=== PATIENT | female | born 1965 ===

== ENCOUNTER → 2018-10-29 | Outpatient (CLI) | payer SELFPAY ==
--- NOTE | 2018-10-29 09:30 | RAD ---
EXAM DESCRIPTION: Hand,Right 3 Views CLINICAL HISTORY: PAIN IN RIGHT HAND COMPARISON: None Available. TECHNIQUE: AP, LATERAL, AND OBLIQUE FINDINGS: Three views of the right hand demonstrate normal alignment and mineralization. No fracture or dislocation is noted. No destructive change or advanced osteoarthritic changes noted. No foreign bodies are noted. IMPRESSION: 1. Negative right hand three views Electronically signed by: Lai Portillo MD 10/29/2018 9:29 AM [facility]
--- NOTE | 2018-10-29 09:30 | RAD ---
EXAM DESCRIPTION: Hand,Left 3 Views CLINICAL HISTORY: PAIN IN LEFT HAND COMPARISON: None Available. TECHNIQUE: AP, LATERAL, AND OBLIQUE FINDINGS: Three views left hand demonstrate normal development and mineralization and alignment. Very little degenerative arthropathy is present and no fracture or dislocation noted. No soft tissue foreign bodies are evident. IMPRESSION: 1. Normal left hand three views. Electronically signed by: Lai Portillo MD 10/29/2018 9:29 AM [facility]
--- NOTE | 2018-10-29 09:31 | RAD ---
EXAM DESCRIPTION: Wrist,Right 3 Views CLINICAL HISTORY: 53 years, Female, PAIN IN RIGHT WRIST COMPARISON: None TECHNIQUE: Three views right breast FINDINGS: Three views of the right wrist demonstrate normal alignment and development and mineralization. No carpal or pericarpal dislocation is seen. No fracture or foreign body or significant degenerative change noted. IMPRESSION: 1. Normal right wrist three views. Electronically signed by: Lai Portillo MD 10/29/2018 9:30 AM [facility]
--- NOTE | 2018-10-29 09:32 | RAD ---
EXAM DESCRIPTION: Wrist,Left 3 Views CLINICAL HISTORY: 53 years, Female, PAIN IN LEFT WRIST COMPARISON: None TECHNIQUE: Three views left wrist FINDINGS: Three views left wrist demonstrate normal mineralization and alignment and development with no significant degenerative changes. No fracture or deformity or other abnormality noted. The distal radius and ulna appear intact. IMPRESSION: 1. Negative left wrist three views. Electronically signed by: Lai Portillo MD 10/29/2018 9:31 AM [facility]
== END ==
LOC: RAD 08:54
PROVIDERS: ATTEND Orthopaedic Surgery
DX: M79.641 Pain in right hand (principal); M79.642 Pain in left hand; M25.531 Pain in right wrist; M25.532 Pain in left wrist

== ENCOUNTER 2018-11-03 05:53 | Day surgery (SDC) | payer OTHER ==
[2018-11-03] MEDS ORDERED: LIDOCAINE 1% 10 ML VIAL INJ ONE ×2 (10:00→11:47)
[2018-11-03] MEDS ORDERED: PROPOFOL 200 MG/20 ML VIAL IV ONE (10:00)
[2018-11-03] MEDS ORDERED: LACTATED RINGERS 1,000 ML ONE (10:28)
[2018-11-03] MEDS ORDERED: BUPIVACAINE 0.25% INJ 30 ML VIAL INJ ONE (11:46)
[2018-11-03] MEDS ORDERED: MIDAZOLAM INJ 2 MG/2 ML VIAL ONE (12:25)
[2018-11-03] MEDS ORDERED: fentaNYL CITRATE INJ 50 MCG/ML AMP ONE (12:25)
[2018-11-03] MEDS ORDERED: SODIUM CHL 0.9% 100ML MINI-BAG 100 ML IVPB ONE (13:03)
[2018-11-03] MEDS ORDERED: ceFAZolin SODIUM 1 GM VIAL ONE (13:03)
[2018-11-03] MEDS: VANCOMYCIN HCL INJ 1,000 MG VIAL IVPB ONE ×2 (13:32→13:37)
[2018-11-03] MEDS: ceFAZolin SODIUM 1 GM VIAL ONE ×2 (13:32→13:37)
[2018-11-03 14:29] VITALS: BP 110/71; TEMP 97.4; O2SAT 100
--- NOTE | 2018-11-05 08:37 | OP ---
DATE OF PROCEDURE: 11/03/18 PREOPERATIVE DIAGNOSIS: 1. Carpal tunnel syndrome. POSTOPERATIVE DIAGNOSIS: 1. Carpal tunnel syndrome. PROCEDURE: 1. Carpal tunnel release. SURGEON: Kvng Darnell MD. AIRCRAFT RIVETER: Buddy Hanna CST, -[place]. ANESTHESIA: Local with sedation. COMPLICATIONS: None. FINDINGS: 1. Thickening of the transverse carpal ligament. 2. Narrowing of the median nerve across the carpal tunnel. INDICATION: Lorie has a very long history of symptoms consistent with carpal tunnel syndrome inclusive of numbness in the distribution of the median nerve during activities and also awakening at night. She had initially responded to conservative measures to include bracing, however, subsequently failed to continue with the positive response. Because of that, she requested operative intervention. After discussing the risks, benefits and alternatives to operative intervention, the patient has given informed consent for carpal tunnel release. PROCEDURE: The patient was brought to the Operating Room and placed in the supine position. Sedation was administered and local anesthetic was injected into the operative area under sterile conditions. After the injection of anesthetic, the arm was sterilely prepped and draped. A longitudinal incision was made directly overlying the transverse carpal ligament and blunt dissection was carried down to the ligament. The transverse carpal ligament was sharply transected along its length and a [place] elevator was used to ensure complete release of the ligament. Once release had been confirmed, the wound was thoroughly irrigated and the wound was closed with Nylon suture. A sterile dressing was placed and the patient was taken to the Day Surgery Unit. POSTOPERATIVE PLAN: The patient has been encouraged to do range of motion of the digits and will followup with us in approximately two days. #[id number] [facility]
== END 2018-11-03 14:32 | disposition home or self-care (01) ==
LOC: AMB 05:53
PROVIDERS: ATTEND Orthopaedic Surgery
DX: G56.01 Carpal tunnel syndrome, right upper limb (principal); Z79.899 Other long term (current) drug therapy
CPT/HCPCS: 01810; 64721; 80307; 81025; 87070; J0690; J2250; J3010; J3370; J3490; J7050; J7120